=== PATIENT | male | born 1980 | race African-American/Black ===

== ENCOUNTER 2018-03-13 16:16 | Emergency (ER) | payer OTHER ==
[~2018-03-13] VITALS: Ht 190.5 cm; Wt 78.4 kg
[2018-03-13 18:47] VITALS: BP 130/67
== END 2018-03-13 18:49 | disposition home or self-care (01) ==
LOC: EME 16:16
DX: M79.671 Pain in right foot (principal); F17.200 Nicotine dependence, unspecified, uncomplicated
CPT/HCPCS: 73630; 99281; 99284